=== PATIENT | male | born 1985 | race African-American/Black ===

== ENCOUNTER 2016-05-12 22:26 | Emergency (ER) | payer SELFPAY ==
[2016-05-12] MEDS ORDERED: BACTRIM 160MG/800MG DS TAB As Ordered ONE (23:05)
[2016-05-12] MEDS ORDERED: EMLA CREAM 5GM (LIDOCAINE/PRILOCAINE) As Ordered ONE (23:06)
--- NOTE | 2016-05-13 00:26 | EDDOCDS ---
Physician Documentation [facility] Name: Roberta Yan Age: 31 yrs Sex: Male : 1985 Arrival Date: 05/12/2016 Time: 22:26 Bed PR Private MD: NO PRIMARY PHYSICIAN, . Disposition: 05/12/16 23:30 Discharged to Home/Self Care. Impression: Cutaneous abscess of face. - Condition is Stable. - Discharge Instructions: Abscess, Cellulitis. - Prescriptions for Bactrim DS 800- 160 mg Oral Tablet - take 2 tablet by ORAL route every 12 hours for 7 days; 28 tablet. - Medication Reconciliation, Local Pharmacy Hours form. - Follow up: Emergency Department; When: As needed. Follow up: [facility]; When: Call to arrange an appointment; Reason: Wound/Symptom Recheck, Recheck today's complaints, Worsening of conditions, Continuance of care, To establish care. - Problem is an ongoing problem. - Symptoms have improved. Historical: - Allergies: No known drug Allergies; - Home Meds: 1. none - PMHx: none; - PSHx: none; - Social history: Smoking status: Patient states former smoker of tobacco. No barriers to communication noted, The patient speaks fluent Icelandic. - Family history: Not pertinent. - : The pt / caregiver states he / she is not on anticoagulants. Home medication list is obtained from the patient. - Exposure Risk Screening:: None identified. Vital Signs: 05/12 22:29 BP 171 / 92; Pulse 92; Resp 18 S; Temp 98.3(T); Pulse Ox 99% on R/A; Weight 163.29 kg / gr2 359.99 lbs (R); Height 6 ft. 0 in. (182.88 cm) (R); Pain 4/10; 22:29 Body Mass Index 48.82 (163.29 kg, 182.88 cm) gr2 Procedures: 23:35 I & D: Incision and drainage was performed for an abscess of the right jaw Prepped with cc10 Betadine, Anesthetized with EMLA. Incised with 18 ga. needle. Drained moderate amount purulent fluid. the patient tolerated the procedure well. MDM: 22:34 HIV Screen, Nursing ordered. af2 22:59 Lidocaine-Prilocaine Cream 2.5 %-2.5 % 1 applic Topical in affected area once; apply to cc10 abscess ordered. 22:59 Trimethoprim-Sulfamethoxazole (MRSA dose) 160 mg-800 mg (DS) 2 tabs PO once ordered. cc10 23:39 [facility] Payment Agreement was scanned into [employer] and attached to record. pauly 23:39 Financial registration complete. gjb Administered Medications: 23:10 Drug: Lidocaine-Prilocaine 1 applic [lidocaine-prilocaine 2.5 %-2.5 % topical cream (1 af2 applic)] Route: Topical; Site: affected area; 23:11 Drug: Trimethoprim-Sulfamethoxazole (MRSA dose) 2 tabs [sulfamethoxazole 800 af2 mg-trimethoprim 160 mg tablet (2 tabs)] Route: PO; Signatures: Doreen Arteaga, RN RN kmg1 Pedro Evans, PA-C PA-C cc10 Lissette Coyne RN RN af2 Augusta Cuellar The chart was reviewed and I authenticate all verbal orders and agree with the evaluation and treatment provided.Attachments: 23:39 [facility] Payment Agreement gjb MTDD
--- NOTE | 2016-05-13 00:26 | EDDOCDS ---
Nurse's Notes [facility] Name: Roberta Yan Age: 31 yrs Sex: Male : 1985 Arrival Date: 05/12/2016 Time: 22:26 Bed PR Private MD: NO PRIMARY PHYSICIAN, . Diagnosis: Cutaneous abscess of face Presentation: 05/12 22:31 Presenting complaint: Patient states: cyst to right side of face x 2 days, reports af2 throbbing pain. Adult Sepsis Screening: The patient does not have new or worsening altered mentation. Patient's respiratory rate is less than 22. Systolic blood pressure is greater than 100. Patient has a qSOFA score of 0- Negative Sepsis Screen. Suicide/Homicide risk assessment- the patient denies having any suicidal and/or homicidal ideations and does not present with any other emotional, behavioral or mental health complaints. 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 Transition of care: patient was not received from another setting of care. 22:31 Acuity: KAROLYN Level 4 af2 22:31 Method Of Arrival: Walkin/Carried/Asstd af2 Triage Assessment: 22:32 General: Appears in no apparent distress, Behavior is cooperative. Pain: Location: af2 right jaw Pain currently is 8 out of 10 on a pain scale. Pt requests HIV screening. Order Generated. Neurological: Level of Consciousness is awake, alert. Respiratory: Airway is patent Respiratory effort is even, unlabored. Derm: Skin is normal. Historical: - Allergies: No known drug Allergies; - Home Meds: 1. none - PMHx: none; - PSHx: none; - Social history: Smoking status: Patient states former smoker of tobacco. No barriers to communication noted, The patient speaks fluent Czech. - Family history: Not pertinent. - : The pt / caregiver states he / she is not on anticoagulants. Home medication list is obtained from the patient. - Exposure Risk Screening:: None identified. Screenin:12 Screening information is obtained from the patient. Fall risk: No risks identified. af2 Assistance ADL's: requires no assistance with activities of daily living. Abuse/DV Screen: The patient / caregiver reports he/she is: not in a situation that causes fear, pain or injury. Nutritional screening: No deficits noted. Advance Directives: Currently, there is no health care proxy. home support is adequate. Assessment: 23:11 General: Appears in no apparent distress, Behavior is appropriate for age, cooperative. af2 Pain: Location: face and right jaw Pain currently is 5 out of 10 on a pain scale. Neurological: Level of Consciousness is awake, alert, obeys commands. Respiratory: Airway is patent Respiratory effort is even, unlabored. Derm: Skin cyst to right jaw noted. Skin is normal. 23:37 Reassessment: Patient appears in no apparent distress at this time. band aid intact kmg1 right side of face. Vital Signs: 22:29 BP 171 / 92; Pulse 92; Resp 18 S; Temp 98.3(T); Pulse Ox 99% on R/A; Weight 163.29 kg gr2 (R); Height 6 ft. 0 in. (182.88 cm) (R); Pain 4/10; 22:29 Body Mass Index 48.82 (163.29 kg, 182.88 cm) gr2 Vitals: 22:29 Log In Time: May 12, 2016 at 22:29. gr2 23:13 HIV Screen Result: Negative. [facility] ED Course: 22:28 Patient visited by Tamela Caldwell. gr2 22:28 Patient moved to Waiting gr2 22:29 NO PRIMARY PHYSICIAN, . is Private Physician. gr2 22:30 Patient visited by Tamela Caldwell. gr2 22:31 Patient moved to Pre RCE gr2 22:32 Triage Initiated af2 22:34 Patient visited by Lissette Coyne RN. af2 22:37 Patient moved to Triage 2 km 22:53 [facility] cc10 22:53 Kapil Arzola DO is Attending Physician. cc10 22:53 Patient visited by Pedro Evans PA-C. cc10 22:53 Patient visited by Pedro Evans PA-C. cc10 23:00 Patient moved to PR2 / 26 cln 23:10 Patient visited by Pedro Evans PA-C. cc10 23:12 The patient / caregiver is instructed regarding the plan of care and ED course. Patient af2 has correct armband on for positive identification. Placed in gown. 23:13 Patient visited by Lissette Coyne RN. af2 23:13 No IV's were initiated during this patient's visit. No procedures done that require af2 assistance. 23:14 Patient visited by Doreen Arteaga RN. [facility] 23:30 [facility] is Referral Physician. cc10 23:39 [facility] Payment Agreement was scanned into [employer] and attached to record. gjb Administered Medications: 23:10 Drug: Lidocaine-Prilocaine 1 applic [lidocaine-prilocaine 2.5 %-2.5 % topical cream (1 af2 applic)] Route: Topical; Site: affected area; 23:11 Drug: Trimethoprim-Sulfamethoxazole (MRSA dose) 2 tabs [sulfamethoxazole 800 af2 mg-trimethoprim 160 mg tablet (2 tabs)] Route: PO; Order Results: There are currently no results for this order. Outcome: 23:30 Discharge ordered by Provider. cc10 23:37 Discharge Assessment: Patient awake, alert and oriented x 3. No cognitive and/or km functional deficits noted. Patient verbalized understanding of disposition instructions. Patient awake and alert. patient administered narcotics - no. The following High Risk Discharge criteria are identified: None. Discharged to home ambulatory. Condition: stable. Discharge instructions given to patient, Instructed on discharge instructions, follow up and referral plans. medication usage, Demonstrated understanding of instructions, medications, Pt was receptive of discharge instructions/ teaching. Prescriptions given X 1. No special radiology studies were completed. Property sent home with patient. 01/09 00:25 Patient left the ED. [facility] Signatures: Doreen Arteaga RN RN [facility] Tamela Caldwell 2 Pedro Evans, PA-C PA-C 10 Lissette Coyne RN RN af2 Augusta Cuellarb Lila Moreno PCA STONE DECORATOR cln MTDD
--- NOTE | 2016-05-15 01:26 | EDDOCDS ---
Physician Documentation [facility] Name: Roberta Yan Age: 31 yrs Sex: Male : 1985 Arrival Date: 05/12/2016 Time: 22:26 Bed PR Private MD: NO PRIMARY PHYSICIAN, . Disposition: 05/12/16 23:30 Discharged to Home/Self Care. Impression: Cutaneous abscess of face. - Condition is Stable. - Discharge Instructions: Abscess, Cellulitis. - Prescriptions for Bactrim DS 800- 160 mg Oral Tablet - take 2 tablet by ORAL route every 12 hours for 7 days; 28 tablet. - Medication Reconciliation, Local Pharmacy Hours form. - Follow up: Emergency Department; When: As needed. Follow up: [facility]; When: Call to arrange an appointment; Reason: Wound/Symptom Recheck, Recheck today's complaints, Worsening of conditions, Continuance of care, To establish care. - Problem is an ongoing problem. - Symptoms have improved. Historical: - Allergies: No known drug Allergies; - Home Meds: 1. none - PMHx: none; - PSHx: none; - Social history: Smoking status: Patient states former smoker of tobacco. No barriers to communication noted, The patient speaks fluent Malay. - Family history: Not pertinent. - : The pt / caregiver states he / she is not on anticoagulants. Home medication list is obtained from the patient. - Exposure Risk Screening:: None identified. Vital Signs: 05/12 22:29 BP 171 / 92; Pulse 92; Resp 18 S; Temp 98.3(T); Pulse Ox 99% on R/A; Weight 163.29 kg / gr2 359.99 lbs (R); Height 6 ft. 0 in. (182.88 cm) (R); Pain 4/10; 22:29 Body Mass Index 48.82 (163.29 kg, 182.88 cm) gr2 Procedures: 23:35 I & D: Incision and drainage was performed for an abscess of the right jaw Prepped with cc10 Betadine, Anesthetized with EMLA. Incised with 18 ga. needle. Drained moderate amount purulent fluid. the patient tolerated the procedure well. MDM: 22:34 HIV Screen, Nursing ordered. af2 22:59 Lidocaine-Prilocaine Cream 2.5 %-2.5 % 1 applic Topical in affected area once; apply to cc10 abscess ordered. 22:59 Trimethoprim-Sulfamethoxazole (MRSA dose) 160 mg-800 mg (DS) 2 tabs PO once ordered. cc10 23:39 [facility] Payment Agreement was scanned into [employer] and attached to record. gjshaan 23:39 Financial registration complete. gjb 05/13 10:26 T-Sheet-- Draft Copy was scanned into [employer] and attached to record. gb Administered Medications: 05/12 23:10 Drug: Lidocaine-Prilocaine 1 applic [lidocaine-prilocaine 2.5 %-2.5 % topical cream (1 af2 applic)] Route: Topical; Site: affected area; 23:11 Drug: Trimethoprim-Sulfamethoxazole (MRSA dose) 2 tabs [sulfamethoxazole 800 af2 mg-trimethoprim 160 mg tablet (2 tabs)] Route: PO; Signatures: Doreen Arteaga, RN RN kmg1 Diane Ruiz, Dakotah Reg gb Pedro Evans, PA-C PA-C cc10 Lissette Coyne RN RN af2 Augusta Cuellar [facility] The chart was reviewed and I authenticate all verbal orders and agree with the evaluation and treatment provided.Attachments: 23:39 [facility] Payment Agreement [facility] 05/13 10:26 T-Sheet-- Draft Copy gb Chart Complete MTDD
--- NOTE | 2016-05-15 01:26 | EDDOCDS ---
Nurse's Notes [facility] Name: Roberta Yan Age: 31 yrs Sex: Male : 1985 Arrival Date: 05/12/2016 Time: 22:26 Bed PR Private MD: NO PRIMARY PHYSICIAN, . Diagnosis: Cutaneous abscess of face Presentation: 05/12 22:31 Presenting complaint: Patient states: cyst to right side of face x 2 days, reports af2 throbbing pain. Adult Sepsis Screening: The patient does not have new or worsening altered mentation. Patient's respiratory rate is less than 22. Systolic blood pressure is greater than 100. Patient has a qSOFA score of 0- Negative Sepsis Screen. Suicide/Homicide risk assessment- the patient denies having any suicidal and/or homicidal ideations and does not present with any other emotional, behavioral or mental health complaints. Status: Patient is not a telephone answering service operator or dependent. Transition of care: patient was not received from another setting of care. 22:31 Acuity: KAROLYN Level 4 af2 22:31 Method Of Arrival: Walkin/Carried/Asstd af2 Triage Assessment: 22:32 General: Appears in no apparent distress, Behavior is cooperative. Pain: Location: af2 right jaw Pain currently is 8 out of 10 on a pain scale. Pt requests HIV screening. Order Generated. Neurological: Level of Consciousness is awake, alert. Respiratory: Airway is patent Respiratory effort is even, unlabored. Derm: Skin is normal. Historical: - Allergies: No known drug Allergies; - Home Meds: 1. none - PMHx: none; - PSHx: none; - Social history: Smoking status: Patient states former smoker of tobacco. No barriers to communication noted, The patient speaks fluent Yakut. - Family history: Not pertinent. - : The pt / caregiver states he / she is not on anticoagulants. Home medication list is obtained from the patient. - Exposure Risk Screening:: None identified. Screenin:12 Screening information is obtained from the patient. Fall risk: No risks identified. af2 Assistance ADL's: requires no assistance with activities of daily living. Abuse/DV Screen: The patient / caregiver reports he/she is: not in a situation that causes fear, pain or injury. Nutritional screening: No deficits noted. Advance Directives: Currently, there is no health care proxy. home support is adequate. Assessment: 23:11 General: Appears in no apparent distress, Behavior is appropriate for age, cooperative. af2 Pain: Location: face and right jaw Pain currently is 5 out of 10 on a pain scale. Neurological: Level of Consciousness is awake, alert, obeys commands. Respiratory: Airway is patent Respiratory effort is even, unlabored. Derm: Skin cyst to right jaw noted. Skin is normal. 23:37 Reassessment: Patient appears in no apparent distress at this time. band aid intact kmg1 right side of face. Vital Signs: 22:29 BP 171 / 92; Pulse 92; Resp 18 S; Temp 98.3(T); Pulse Ox 99% on R/A; Weight 163.29 kg gr2 (R); Height 6 ft. 0 in. (182.88 cm) (R); Pain 4/10; 22:29 Body Mass Index 48.82 (163.29 kg, 182.88 cm) gr2 Vitals: 22:29 Log In Time: May 12, 2016 at 22:29. gr2 23:13 HIV Screen Result: Negative. [facility] ED Course: 22:28 Patient visited by Tamela Caldwell. gr2 22:28 Patient moved to Waiting gr2 22:29 NO PRIMARY PHYSICIAN, . is Private Physician. gr2 22:30 Patient visited by Tamela Caldwell. gr2 22:31 Patient moved to Pre RCE gr2 22:32 Triage Initiated af2 22:34 Patient visited by Lissette Coyne RN. af2 22:37 Patient moved to Triage 2 km 22:53 [facility] cc[facility] 22:53 Kapil Arzola DO is Attending Physician. cc10 22:53 Patient visited by Pedro Evans PA-C. cc10 22:53 Patient visited by Pedro Evans PA-C. cc10 23:00 Patient moved to PR2 / 26 cln 23:10 Patient visited by Pedro Evans PA-C. cc10 23:12 The patient / caregiver is instructed regarding the plan of care and ED course. Patient af2 has correct armband on for positive identification. Placed in gown. 23:13 Patient visited by Lissette Coyne RN. af2 23:13 No IV's were initiated during this patient's visit. No procedures done that require af2 assistance. 23:14 Patient visited by Doreen Arteaga RN. [facility] 23:30 [facility] is Referral Physician. cc10 23:39 [facility] Payment Agreement was scanned into [employer] and attached to record. gjb 05/13 10:26 T-Sheet-- Draft Copy was scanned into [employer] and attached to record. gb Administered Medications: 05/12 23:10 Drug: Lidocaine-Prilocaine 1 applic [lidocaine-prilocaine 2.5 %-2.5 % topical cream (1 af2 applic)] Route: Topical; Site: affected area; 23:11 Drug: Trimethoprim-Sulfamethoxazole (MRSA dose) 2 tabs [sulfamethoxazole 800 af2 mg-trimethoprim 160 mg tablet (2 tabs)] Route: PO; Order Results: There are currently no results for this order. Outcome: 23:30 Discharge ordered by Provider. cc10 23:37 Discharge Assessment: Patient awake, alert and oriented x 3. No cognitive and/or [facility] functional deficits noted. Patient verbalized understanding of disposition instructions. Patient awake and alert. patient administered narcotics - no. The following High Risk Discharge criteria are identified: None. Discharged to home ambulatory. Condition: stable. Discharge instructions given to patient, Instructed on discharge instructions, follow up and referral plans. medication usage, Demonstrated understanding of instructions, medications, Pt was receptive of discharge instructions/ teaching. Prescriptions given X 1. No special radiology studies were completed. Property sent home with patient. 05/13 00:25 Patient left the ED. [facility] Signatures: Doreen Arteaga, RAMIREZ RN g1 Diane Ruiz, Reg Reg Tamela Caldwell gr2 Pedro Evans, PA-C PA-C cc10 Lissette Coyne RN RN af2 Augusta Cuellarb Lila Moreno PCA TERADATA DEVELOPER cln Chart Complete MTDD
--- NOTE | 2016-05-15 01:26 | EDDOCDS ---
Physician Documentation [facility] Name: Roberta Yan Age: 31 yrs Sex: Male : 1985 Arrival Date: 05/12/2016 Time: 22:26 Bed PR Private MD: NO PRIMARY PHYSICIAN, . Disposition: 05/12/16 23:30 Discharged to Home/Self Care. Impression: Cutaneous abscess of face. - Condition is Stable. - Discharge Instructions: Abscess, Cellulitis. - Prescriptions for Bactrim DS 800- 160 mg Oral Tablet - take 2 tablet by ORAL route every 12 hours for 7 days; 28 tablet. - Medication Reconciliation, Local Pharmacy Hours form. - Follow up: Emergency Department; When: As needed. Follow up: [facility]; When: Call to arrange an appointment; Reason: Wound/Symptom Recheck, Recheck today's complaints, Worsening of conditions, Continuance of care, To establish care. - Problem is an ongoing problem. - Symptoms have improved. Historical: - Allergies: No known drug Allergies; - Home Meds: 1. none - PMHx: none; - PSHx: none; - Social history: Smoking status: Patient states former smoker of tobacco. No barriers to communication noted, The patient speaks fluent Sinhala. - Family history: Not pertinent. - : The pt / caregiver states he / she is not on anticoagulants. Home medication list is obtained from the patient. - Exposure Risk Screening:: None identified. Vital Signs: 05/12 22:29 BP 171 / 92; Pulse 92; Resp 18 S; Temp 98.3(T); Pulse Ox 99% on R/A; Weight 163.29 kg / gr2 359.99 lbs (R); Height 6 ft. 0 in. (182.88 cm) (R); Pain 4/10; 22:29 Body Mass Index 48.82 (163.29 kg, 182.88 cm) gr2 Procedures: 23:35 I & D: Incision and drainage was performed for an abscess of the right jaw Prepped with cc10 Betadine, Anesthetized with EMLA. Incised with 18 ga. needle. Drained moderate amount purulent fluid. the patient tolerated the procedure well. MDM: 22:34 HIV Screen, Nursing ordered. af2 22:59 Lidocaine-Prilocaine Cream 2.5 %-2.5 % 1 applic Topical in affected area once; apply to cc10 abscess ordered. 22:59 Trimethoprim-Sulfamethoxazole (MRSA dose) 160 mg-800 mg (DS) 2 tabs PO once ordered. cc10 23:39 [facility] Payment Agreement was scanned into [employer] and attached to record. gjshaan 23:39 Financial registration complete. gjb 05/13 10:26 T-Sheet-- Draft Copy was scanned into [employer] and attached to record. gb Administered Medications: 05/12 23:10 Drug: Lidocaine-Prilocaine 1 applic [lidocaine-prilocaine 2.5 %-2.5 % topical cream (1 af2 applic)] Route: Topical; Site: affected area; 23:11 Drug: Trimethoprim-Sulfamethoxazole (MRSA dose) 2 tabs [sulfamethoxazole 800 af2 mg-trimethoprim 160 mg tablet (2 tabs)] Route: PO; Signatures: Doreen Arteaga, RN RN kmg1 Diane Ruiz, Dakotah Reg gb Pedro Evans, PA-C PA-C cc10 Lissette Coyne RN RN af2 Augusta Cuellar [facility] The chart was reviewed and I authenticate all verbal orders and agree with the evaluation and treatment provided.Attachments: 23:39 [facility] Payment Agreement [facility] 05/13 10:26 T-Sheet-- Draft Copy gb Chart Complete MTDD
== END 2016-05-13 00:25 | disposition home or self-care (01) ==
LOC: M ED 22:26
DX: L02.01 Cutaneous abscess of face (principal); Z87.891 Personal history of nicotine dependence

== ENCOUNTER 2017-02-04 12:36 | Emergency (ER) | payer OTHER ==
[~2017-02-04] VITALS: Ht 182.9 cm; Wt 147.7 kg
--- NOTE | 2017-02-04 16:37 | REP ---
LEFT KNEE SERIES: Five views of the left knee are performed. There is no acute fracture or dislocation. There is mild diffuse joint space narrowing with subchondral sclerosis. There is mild spurring at the margins of the joint. There is not a significant joint effusion. IMPRESSION: Mild degenerative changes. No fracture or dislocation. Signed by Rupert Herring MD 02/05/2017 10:25 A
[2017-02-04] MEDS ORDERED: MOBI4TAB PO (17:02)
[2017-02-04 17:17] VITALS: BP 180/107
== END 2017-02-04 17:20 | disposition home or self-care (01) ==
LOC: M ED 12:36
DX: M17.12 Unilateral primary osteoarthritis, left knee (principal); Z87.891 Personal history of nicotine dependence